=== PATIENT | male | born 1955 | race Hispanic/Latino ===

== ENCOUNTER 2019-03-13 09:33 | Day surgery (SDC) | payer MEDICAID ==
[~2019-03-13] VITALS: Ht 175.3 cm; Wt 96.6 kg
[~2019-03-13 09:33] MED LIST: SODIUM CHLORIDE 0.9% 1000ML 1,000 ML IV ONE
[2019-03-13 10:43] VITALS: BP 119/61
[2019-03-13] MEDS ORDERED: CHOL500050 PO (10:47)
[2019-03-13] MEDS ORDERED: AZIT500T2 PO (10:47)
[2019-03-13] MEDS ORDERED: LEVO100T12 PO (10:47)
[2019-03-13] MEDS ORDERED: ACET1TAB12 PO (10:47)
[2019-03-13] MEDS ORDERED: IBUP-2077 PO (10:47)
[2019-03-13] MEDS ORDERED: PROPOFOL 10 MG/ML 20ML VIAL IV ONE (11:37)
[2019-03-13 11:55] VITALS: BP 98/59
[2019-03-13 12:00] VITALS: BP 101/58
[2019-03-13 12:20] VITALS: BP 100/82
== END 2019-03-13 12:47 | disposition home or self-care (01) ==
LOC: ENDO 09:33 → DAH 09:33 → ENDO 12:47
PROVIDERS: ATTEND Internal Medicine
DX: K59.00 Constipation, unspecified (principal); D12.8 Benign neoplasm of rectum; D12.4 Benign neoplasm of descending colon; D12.3 Benign neoplasm of transverse colon; K57.30 Diverticulosis of large intestine without perforation or abscess without bleeding; K64.8 Other hemorrhoids; E03.9 Hypothyroidism, unspecified; Z79.899 Other long term (current) drug therapy
CPT/HCPCS: 45380; 45385; 88305; A4215; A4221; A4222; A4223; A4606; A4615; A4663; J2704; J7030